=== PATIENT | male | born 1930 | race Hispanic/Latino ===

== ENCOUNTER 2018-03-03 09:24 | Inpatient (IN) | payer MEDICARE, OTHER ==
[2018-03-03] MEDS ORDERED: Iohexol 240 (50 ml) PO ONE (10:25)
[2018-03-03] MEDS ORDERED: Sodium Chloride 0.9% 1,000 ML IV STA (10:26)
--- NOTE | 2018-03-03 10:31 | ED PDOC ---
HPI: General Adult Time Seen by Provider: 03/03/18 09:56 Chief Complaint (Nursing): Weakness/Neurological Deficit Chief Complaint (Provider): Weakness/Decreased Appetite History Per: Patient, Other (Neighbor ) Onset/Duration Of Symptoms: Days Current Symptoms Are (Timing): Still Present Additional Complaint(s): 87 year old male with a past medical history of hypertension and hyperlipidemia who was brought to the ED by neighbor for evaluation as patient hasnt been eating or drinking in the past 2 weeks. Neighbor states that patient has had weakness and lethargy as well as more medical problems that he cant remember. Patient states that he has left sided abdominal pain and increased urination. He also adds that he used to drink and smoke daily but over the past 2 weeks has not been. Patient denies fevers, vomiting, or diarrhea. [facility] Past Medical History Reviewed: Historical Data, Nursing Documentation, Vital Signs Vital Signs: Last Vital Signs Temp 97.4 F L 03/03/18 09:37 Pulse 70 03/03/18 09:37 Resp 18 03/03/18 09:37 BP 111/70 03/03/18 09:37 Pulse Ox 100 03/03/18 09:37 - Medical History PMH: HTN, Hyperlipidemia - Surgical History Surgical History: Appendectomy - Family History Family History: States: Unknown Family Hx - Social History Current smoker - smoking cessation education provided: Yes (not in the last 2 weeks or so) Alcohol: > 2 Drinks/Day (not in the last 2 weeks or so) Drugs: Denies - Home Medications Home Medications: Ambulatory Orders Medication Instructions Recorded Cholecalciferol (Vitamin D3) 2,000 unit PO DAILY 03/03/18 [Vitamin D3] Folic Acid 1 mg PO DAILY 03/03/18 Simvastatin [Zocor] 40 mg PO HS 03/03/18 - Allergies Allergies/Adverse Reactions: Allergies Allergy/AdvReac Type Severity Reaction Status Date / Time No Known Allergies Allergy Verified 03/03/18 10:00 Review of Systems ROS Statement: Except As Marked, All Systems Reviewed And Found Negative Constitutional: Positive for: Weakness, Other (lethargic, decreased appetite ) Gastrointestinal: Positive for: Abdominal Pain Genitourinary Male: Positive for: Frequency (increased urination ) Physical Exam - Reviewed Nursing Documentation Reviewed: Yes Vital Signs Reviewed: Yes - Physical Exam Appears: Positive for: Non-toxic, No Acute Distress (thin appearing ) Head Exam: Positive for: ATRAUMATIC, NORMAL INSPECTION, NORMOCEPHALIC Skin: Positive for: Warm, Pallor Eye Exam: Positive for: Normal appearance ENT: Positive for: Other (poor dental hygiene ) Cardiovascular/Chest: Positive for: Regular Rate, Rhythm. Negative for: Murmur Respiratory: Positive for: Normal Breath Sounds. Negative for: Respiratory Distress Gastrointestinal/Abdominal: Positive for: Soft, Tenderness (mild left sided tenderness) Extremity: Positive for: Normal ROM. Negative for: Deformity, Swelling Neurologic/Psych: Positive for: Alert, Oriented. Negative for: Motor/Sensory Deficits - Laboratory Results Result Diagrams: 03/03/18 10:43 03/03/18 10:43 - ECG O2 Sat by Pulse Oximetry: 100 (RA) Pulse Ox Interpretation: Normal Medical Decision Making Medical Decision Making: Time: 10:33 Impression: Rule out dehydration, electrolyte abnormality, infection, or intra- abdominal process Plan: --CT Abd/Pelvis --CMP --Lipase --CBC --IV Fluids --Omnipaque 50 ml PO --Urine Culture --Urinalysis Time: 1332 Chest X-Ray: FINDINGS: LUNGS: No active pulmonary disease. PLEURA: No significant pleural effusion identified. No pneumothorax apparent. CARDIOVASCULAR: There is presence of aortic atherosclerotic calcification on x-ray. Normal cardiac size. No significant or acute findings to account for/ related to the clinical presentation. OSSEOUS STRUCTURES: Thoracic spondylosis. Bilateral shoulder arthrosis. VISUALIZED UPPER ABDOMEN: Normal. OTHER FINDINGS: None. IMPRESSION: No active disease. Other findings as above. Spoke to Dr. Joseph regarding patient who will be admitted. Patient' labs are all cytopenic. Spoke to Dr. Bang, compensation administrator. Patient will be admitted to hematology, urology, or GI. CT Abd/Pelvis: FINDINGS: LOWER THORAX: Unremarkable. LIVER: Unremarkable. No gross lesion or ductal dilatation.. Massive dilatation of the portal veins including main and splenic vein. GALLBLADDER AND BILE DUCTS: Unremarkable. PANCREAS: Unremarkable. No gross lesion or ductal dilatation. SPLEEN: Massive splenomegaly. Orthogonal measurements 11.6 x 21.6 x 25.8 cm. Peripheral area of diminished attenuation which appears represent a subcapsular collection with mean Hounsfield unit values 36.5. There is no history of recent trauma. Alternatively and in particular on the sagittal views these could represent peripheral areas of splenic infarction. ADRENALS: Unremarkable. No mass. KIDNEYS AND URETERS: Unremarkable. No hydronephrosis. No solid mass. VASCULATURE: Atherosclerotic calcification and mural plaque present. Findings are seen throughout the aorta BOWEL: Unremarkable. No obstruction. No gross mural thickening. APPENDIX: Normal appendix. PERITONEUM: Unremarkable. No free fluid. No free air. LYMPH NODES: Unremarkable. No enlarged lymph nodes. BLADDER: Unremarkable. REPRODUCTIVE: Unremarkable. BONES: No acute fracture. OTHER FINDINGS: None. IMPRESSION: Massive splenomegaly. Massive dilatation of the portal veins. Subcapsular areas of diminished attenuation perhaps splenic infarction. Old subcapsular hemorrhagic process less likely (there is no layering of blood pool products) Communication of results: I discussed these findings directly with the attending physician in the emergency department at 14:14. Time: 1540 US Abdomen: FINDINGS: LIVER: Measures 19.0 cm in length. Patent portal vein. Portal venous flow: Hepatopetal. Unremarkable echogenicity of the liver parenchyma. No mass. No intrahepatic bile duct dilatation. GALLBLADDER: Unremarkable. No gallstones. COMMON BILE DUCT: Measures 3.9 mm. No stones. No dilatation. PANCREAS: Unremarkable as visualized. No mass. No ductal dilatation. RIGHT KIDNEY: Measures 4.5 x 10.1 cm in length. Normal echogenicity. No calculus, mass, or hydronephrosis. AORTA: No aneurysmal dilatation. IVC: Unremarkable. OTHER FINDINGS: Massive splenomegaly. Findings confirmed on concurrent CT scan of the abdomen and pelvis. Splenic length 23.7 cm. Orthogonal measurements 15.2 cm. Heterogeneous expects of the spleen identified on CT are only visible to limited fashion on sagittal images. This appears to be a peripheral area of low attenuation 10 cm in length. Benign calcifications noted, punctate type in the spleen IMPRESSION: Massive splenomegaly. Patent portal venous system. Pt will be admitted to the hospital. Scribe Attestation: Documented by Clair Duarte, acting as a scribe for Joao Feliciano MD. Provider Scribe Attestation: All medical record entries made by the Scribe were at my direction and personally dictated by me. I have reviewed the chart and agree that the record accurately reflects my personal performance of the history, physical exam, medical decision making, and the department course for this patient. I have also personally directed, reviewed, and agree with the discharge instructions and disposition. Disposition - Clinical Impression Clinical Impression: Generalized muscle weakness - Patient ED Disposition Is Patient to be Admitted: Yes Counseled Patient/Family Regarding: Studies Performed, Diagnosis - Disposition Disposition Time: 15:00 Condition: GUARDED
[2018-03-03] MEDS ORDERED: Iohexol 240 (50 ml) ONE (10:43)
[2018-03-03 10:55] LABS: BASO % 1.6 % (0.0-2.0); EOS % 0.1 % (0.0-4.0); HEMOGLOBIN 9.6 g/dL (12.0-18.0); LYMPH # 1.6 K/uL (1.0-4.3); LYMPH % 64.4 % (20.0-40.0); MEAN CELL VOLUME 87.3 fl (80.0-94.0); MEAN CORPUSCULAR HEMOGLOBIN 28.2 pg (27.0-31.0); MEAN CORPUSCULAR HGB CONC 32.3 g/dL (33.0-37.0); MEAN PLATELET VOLUME 10.3 fl (7.2-11.7); MONO # 0.3 K/uL (0.0-0.8); MONO % 11.4 % (0.0-10.0); NEUT # 0.6 K/uL (1.8-7.0); NEUT % 22.5 % (50.0-75.0); NRBC % 0.1 % (0.0-0.0); RBC 3.42 Mil/uL (4.40-5.90); RED CELL DISTRIBUTION WIDTH 15.1 % (11.5-14.5); WHITE BLOOD COUNT 2.5 K/uL (4.8-10.8)
[2018-03-03 10:57] LABS: ALB/GLOB RATIO 1.2 (1.0-2.1); ALBUMIN 3.2 g/dL (3.5-5.0); ALT/SGPT 19 U/L (21-72); AST/SGOT 32 U/L (17-59); BLOOD UREA NITROGEN 18 mg/dl (9-20); CALCIUM 8.5 mg/dL (8.4-10.2); GFR NON-AFRICAN AMERICAN > 60; LIPASE 65 U/L (23-300)
[2018-03-03 11:09] LABS: URINE AMORPHOUS SEDIMENT RARE /ul (<OCC); URINE BACTERIA RARE (<OCC); URINE BILIRUBIN NEGATIVE (NEGATIVE); URINE BLOOD NEGATIVE (NEGATIVE); URINE CLARITY CLOUDY (Clear); URINE COLOR AMBER (YELLOW); URINE GLUCOSE (UA) NEG (NEGATIVE); URINE HYALINE CAST 0-2 /hpf (0-2); URINE LEUKOCYTE ESTERASE NEG Leu/uL (Negative); URINE PROTEIN NEGATIVE (NEGATIVE)
[2018-03-03] MEDS ORDERED: Iohexol 300 100 ML IJ ONE (13:16)
[2018-03-03] MEDS ORDERED: Sodium Chloride 0.9% 50 ML IV ONE (13:16)
--- NOTE | 2018-03-03 13:35 | RAD ---
Date of service: 03/03/2018 HISTORY: weakness COMPARISON: No prior. TECHNIQUE: Chest PA and lateral FINDINGS: LUNGS: No active pulmonary disease. PLEURA: No significant pleural effusion identified. No pneumothorax apparent. CARDIOVASCULAR: There is presence of aortic atherosclerotic calcification on x-ray. Normal cardiac size. No significant or acute findings to account for/ related to the clinical presentation. OSSEOUS STRUCTURES: Thoracic spondylosis. Bilateral shoulder arthrosis. VISUALIZED UPPER ABDOMEN: Normal. OTHER FINDINGS: None. IMPRESSION: No active disease. Other findings as above.
--- NOTE | 2018-03-03 14:23 | CT ---
Date of service: 03/03/2018 PROCEDURE: CT Abdomen and Pelvis with contrast HISTORY: Abdominal pain and abnormal labs including thrombocytopenia and anemia. COMPARISON: None. TECHNIQUE: Intravenous contrast dose: 95 cc Omnipaque 300. Radiation dose: Total exam DLP = <inf_radiation_dlp> mGy-cm. This CT exam was performed using one or more of the following dose reduction techniques: Automated exposure control, adjustment of the mA and/or kV according to patient size, and/or use of iterative reconstruction technique. FINDINGS: LOWER THORAX: Unremarkable. LIVER: Unremarkable. No gross lesion or ductal dilatation.. Massive dilatation of the portal veins including main and splenic vein. GALLBLADDER AND BILE DUCTS: Unremarkable. PANCREAS: Unremarkable. No gross lesion or ductal dilatation. SPLEEN: Massive splenomegaly. Orthogonal measurements 11.6 x 21.6 x 25.8 cm. Peripheral area of diminished attenuation which appears represent a subcapsular collection with mean Hounsfield unit values 36.5. There is no history of recent trauma. Alternatively and in particular on the sagittal views these could represent peripheral areas of splenic infarction. ADRENALS: Unremarkable. No mass. KIDNEYS AND URETERS: Unremarkable. No hydronephrosis. No solid mass. VASCULATURE: Atherosclerotic calcification and mural plaque present. Findings are seen throughout the aorta BOWEL: Unremarkable. No obstruction. No gross mural thickening. APPENDIX: Normal appendix. PERITONEUM: Unremarkable. No free fluid. No free air. LYMPH NODES: Unremarkable. No enlarged lymph nodes. BLADDER: Unremarkable. REPRODUCTIVE: Unremarkable. BONES: No acute fracture. OTHER FINDINGS: None. IMPRESSION: Massive splenomegaly. Massive dilatation of the portal veins. Subcapsular areas of diminished attenuation perhaps splenic infarction. Old subcapsular hemorrhagic process less likely (there is no layering of blood pool products) Communication of results: I discussed these findings directly with the attending physician in the emergency department at 14:14.
--- NOTE | 2018-03-03 15:44 | US ---
Date of service: 03/03/2018 HISTORY: splenomegaly COMPARISON: March 03, 2018 CT abdomen and pelvis TECHNIQUE: Sonographic evaluation of the right upper quadrant of the abdomen. FINDINGS: LIVER: Measures 19.0 cm in length. Patent portal vein. Portal venous flow: Hepatopetal. Unremarkable echogenicity of the liver parenchyma. No mass. No intrahepatic bile duct dilatation. GALLBLADDER: Unremarkable. No gallstones. COMMON BILE DUCT: Measures 3.9 mm. No stones. No dilatation. PANCREAS: Unremarkable as visualized. No mass. No ductal dilatation. RIGHT KIDNEY: Measures 4.5 x 10.1 cm in length. Normal echogenicity. No calculus, mass, or hydronephrosis. AORTA: No aneurysmal dilatation. IVC: Unremarkable. OTHER FINDINGS: Massive splenomegaly. Findings confirmed on concurrent CT scan of the abdomen and pelvis. Splenic length 23.7 cm. Orthogonal measurements 15.2 cm. Heterogeneous expects of the spleen identified on CT are only visible to limited fashion on sagittal images. This appears to be a peripheral area of low attenuation 10 cm in length. Benign calcifications noted, punctate type in the spleen IMPRESSION: Massive splenomegaly. Patent portal venous system.
--- NOTE | 2018-03-03 20:39 | CARD ---
APPROVED REPORT Date of service: 03/03/2018 EKG Measurement Heart [id number] <Conclusion> Normal sinus rhythm Normal ECG
--- NOTE | 2018-03-03 22:31 | CP.PCM.CON ---
History of Present Illness - History of Present Illness History of Present Illness: 87 year old male with a history of HTN, HL, brought in for weakness and poor po intake, found to have splenomegaly and pancytopenia. The patient does admit to left sided abdominal pain and fatigue. He notes to diminished appetite. He denies fevers and chills. He has no abnormal bleeding and bruising. Past medical history: HTN, HL Past surgical history: Appendectomy Family history: Denies hematologic and oncologic problems Social history: +tobacco, + alcohol Allergies: NKA Review of systems: All remaining review of systems including HEENT, cardiovascular, respiratory, gastrointestinal, genitourinary, musculoskeletal, dermatologic, neurologic, and psychiatric are negative unless mentioned in the HPI. Past Patient History - Past Social History Alcohol: > 2 Drinks/Day (not in the last 2 weeks or so) Drugs: Denies - CARDIAC Hx Cardiac Disorders: Yes - PSYCHIATRIC Hx Substance Use: No - SURGICAL HISTORY Hx Appendectomy: Yes Meds Allergies/Adverse Reactions: Allergies Allergy/AdvReac Type Severity Reaction Status Date / Time No Known Allergies Allergy Verified 03/03/18 10:00 - Medications Medications: Current Medications Cholecalciferol (Vitamin D) 2,000 intlu PO DAILY BETSY Folic Acid (Folic Acid) 1 mg PO DAILY BETSY Physical Exam - Head Exam Head Exam: ATRAUMATIC - Eye Exam Eye Exam: Normal appearance - ENT Exam ENT Exam: Mucous Membranes Dry - Respiratory Exam Respiratory Exam: NORMAL BREATHING PATTERN - Cardiovascular Exam Cardiovascular Exam: +S1, +S2 - GI/Abdominal Exam GI & Abdominal Exam: Normal Bowel Sounds - Neurological Exam Neurological exam: Oriented x3 - Psychiatric Exam Psychiatric exam: Normal Affect, Normal Mood - Skin Skin Exam: Warm Results - Vital Signs Recent Vital Signs: Last Vital Signs Temp 97.6 F 03/03/18 20:54 Pulse 71 03/03/18 20:54 Resp 18 03/03/18 20:54 BP 106/63 03/03/18 20:54 Pulse Ox 99 03/03/18 20:54 - Labs Result Diagrams: 03/03/18 10:43 03/03/18 10:43 Labs: Laboratory Results - last 24 hr 03/03/18 03/03/18 03/03/18 10:43 10:43 10:43 WBC 2.5 L RBC 3.42 L Hgb 9.6 L Hct 29.9 L MCV 87.3 MCH 28.2 MCHC 32.3 L RDW 15.1 H Plt Count 34 L MPV 10.3 Neut % (Auto) 22.5 L Lymph % (Auto) 64.4 H Darke % (Auto) 11.4 H Eos % (Auto) 0.1 Baso % (Auto) 1.6 Neut # (Auto) 0.6 L Lymph # (Auto) 1.6 Darke # (Auto) 0.3 Eos # (Auto) 0.0 Baso # (Auto) 0.0 Sodium 131 L Potassium 4.4 Chloride 98 Carbon Dioxide 30 Anion Gap 7 L BUN 18 Creatinine 0.9 Est GFR ( Amer) > 60 Est GFR (Non-Af Amer) > 60 Random Glucose 90 Calcium 8.5 Total Bilirubin 0.9 AST 32 ALT 19 L Alkaline Phosphatase 79 Total Protein 5.9 L Albumin 3.2 L Globulin 2.7 Albumin/Globulin Ratio 1.2 Lipase 65 Urine Color Darby Urine Clarity Cloudy Urine pH 5.0 Ur Specific [place] 1.023 Urine Protein Negative Urine Glucose (UA) Neg Urine Ketones Negative Urine Blood Negative Urine Nitrate Negative Urine Bilirubin Negative Urine Urobilinogen 4.0 Ur Leukocyte Esterase Neg Urine RBC (Auto) 2 Urine Microscopic WBC 3 Amorphous Sediment Rare H Urine Bacteria Rare Hyaline Casts 0-2 Assessment & Plan (1) Pancytopenia Assessment and Plan: with splenomegaly ? myeloproliferative disorder ? lymphoma patient agreeable to bone marow biopsy - will plan to do in AM HIV and hepatitis panel Status: Acute (2) Splenomegaly Assessment and Plan: rule out lymphoma, rule out myeloproliferative disorder Thank you for this interesting consult. Status: Acute
--- NOTE | 2018-03-04 04:03 | CON ---
DATE: 03/03/2018 REFERRING DOCTOR: Dr. Bang. REASON FOR CONSULTATION: Splenomegaly. HISTORY OF PRESENT ILLNESS: This is a very pleasant 87-year-old male with history of hyperlipidemia and hypertension who is brought in because the patient has been not on p.o. intake over the past couple of weeks. While patient and pain. The patient is seen lying in bed, comfortable, in no apparent distress. PAST MEDICAL HISTORY: As above. PAST SURGICAL HISTORY: As above. MEDICATIONS: Reviewed. REVIEW OF SYSTEMS: All other systems have been reviewed and negative apart from the HPI. PHYSICAL EXAMINATION: VITAL SIGNS: Here in the hospital grossly unremarkable. GENERAL: A pleasant, elderly-appearing male, lying in bed comfortable. HEENT: Head is normocephalic and atraumatic. Eyes, pupils are equally reactive to light bilaterally. No conjunctival pallor or icterus. NECK: Supple. Normal range of motion noted. No lymphadenopathy appreciated. LUNGS: Coarse breath sounds bilaterally. HEART: S1, S2. Regular rate and rhythm. ABDOMEN: Soft. Tender in the left quadrant. No rebound. No guarding. EXTREMITIES: Pulses present bilaterally. SKIN: Warm, dry, and intact. NEUROLOGY: A and O x3. LABORATORY DATA: Labs and radiology have been reviewed. WBC is 2.5, hemoglobin is 9.6, platelet count is 34. Imaging shows an abdominal CT that was performed with p.o. and IV contrast which shows a massive splenomegaly. Possible splenic infarct ultrasound confirms the CAT scan findings of a very large spleen. ASSESSMENT AND PLAN: This is an 87-year-old man with splenomegaly. Differential included but not limited to, given his pancytopenia, recommend Hematology involvement, possibly from leukemia. From gastrointestinal standpoint, advance diet as tolerated, and we will follow the patient with you. Thank you for the consult. Asaf Arnold MD/ PhD cc: Dr. Bang.
[2018-03-04] MEDS ORDERED: Lidocaine 2% Inj (20ml) ONE (08:53)
[2018-03-04] MEDS ORDERED: Povidone Iodine Topical 10% Sol ONE (08:56)
[2018-03-04] MEDS ORDERED: Cholecalciferol 1,000 INTLU TAB PO SCH (09:00)
--- NOTE | 2018-03-04 09:53 | CP.PCM.PN ---
Subjective - Date & Time of Evaluation Date of Evaluation: 03/04/18 Time of Evaluation: 09:00 - Subjective Subjective: Bone marrow aspiration and biopsy procedure Indication: Pancytopenia and splenomegaly - Time-out was called to confirm: patients name and date of , procedure, side and site of biopsy, safety procedures followed. - Performed by: self. - Informed consent: signed by patient. - Aspiration and biopsy site: [LEFT] superior posterior iliac crest. - Patient position: [right lateral decubitus] - Preparation and technique: sterile preparation of site with [place], Chloraprep, draped to expose aspirate/biopsy area, local anesthesia with 2% lidocaine (approximately 10ml), frequent pressure application on incision to maintain hemostasis. - Tissue obtained: bone marrow aspirate and biopsy were successfully obtained in sterile manner. - Toleration of procedure and any complications: slight localized bleeding (<1ml). Patient tolerated procedure well with minimal pain. Objective - Vital Signs/Intake and Output Vital Signs (last 24 hours): Temp Pulse Resp BP Pulse Ox 97.3 F L 62 20 105/56 L 100 03/04/18 07:48 03/04/18 07:48 03/04/18 07:48 03/04/18 07:48 03/04/18 07:48 - Medications Medications: Current Medications Cholecalciferol (Vitamin D) 2,000 intlu PO DAILY [facility] Folic Acid (Folic Acid) 1 mg PO DAILY [facility] - Labs Labs: 03/03/18 10:43 03/03/18 10:43 - Head Exam Head Exam: ATRAUMATIC - Eye Exam Eye Exam: Normal appearance - ENT Exam ENT Exam: Mucous Membranes Dry - Respiratory Exam Respiratory Exam: NORMAL BREATHING PATTERN - Cardiovascular Exam Cardiovascular Exam: +S1, +S2 - GI/Abdominal Exam GI & Abdominal Exam: Normal Bowel Sounds Assessment and Plan (1) Pancytopenia Assessment & Plan: s/p bone marrow biopsy f/u 2 weeks in the office Status: Acute (2) Splenomegaly Status: Acute
--- NOTE | 2018-03-04 12:05 | CP.PCM.PCO ---
Assessment/Plan - Assessment and Plan (Free Text) Assessment: Patient seen and examined Doing well, had bone marrow this morning with Dr Davis Cleared from Hematology for discharge with follow up in 2 weeks for bone marrow results. Cleared by GI Dr Arnold for dc Pt eval pending Discussed with Dr South who agrees.
[2018-03-04 12:27] LABS: HEPATITIS B SURFACE AG Negative (NEGATIVE)
[2018-03-04 12:33] LABS: HEPATITIS A IGM NEGATIVE (NEGATIVE); HEPATITIS B CORE AB NEGATIVE (NEGATIVE)
[2018-03-04 12:44] LABS: HEPATITIS C ANTIBODY NEGATIVE (NEGATIVE)
[2018-03-04 12:58] LABS: FOLATE > 20.0 ng/mL
[2018-03-04 15:49] VITALS: BP 113/71; PULSE 70; RESP 17; TEMP 97.7
--- NOTE | 2018-03-04 23:46 | CP.PCM.DIS ---
Provider - Provider Date of Admission: 03/03/18 14:28 Attending physician: Maninder Bang MD Consults: 03/03/18 14:26 Hematology Oncology Consult Stat Comment: Consulting Provider: Jarad Davis Consulting Physician: Jarad Davis Reason for Consult: splenomegaly, pancytopenia 03/03/18 14:27 Gastroenterology Consult Stat Comment: Consulting Provider: Asaf Arnold Consulting Physician: Asaf Arnold Reason for Consult: splenomegaly possible infarction Time Spent in preparation of Discharge (in minutes): 30 Hospital Course - Lab Results Lab Results: Micro Results 03/03/18 10:43 Urine,Clean Catch Urine Culture - Final No Growth (<1,000 CFU/ML) Most Recent Lab Values WBC 2.5 K/uL (4.8-10.8) L 03/03/18 10:43 RBC 3.42 Mil/uL (4.40-5.90) L 03/03/18 10:43 Hgb 9.6 g/dL (12.0-18.0) L 03/03/18 10:43 Hct 29.9 % (35.0-51.0) L 03/03/18 10:43 MCV 87.3 fl (80.0-94.0) 03/03/18 10:43 MCH 28.2 pg (27.0-31.0) 03/03/18 10:43 MCHC 32.3 g/dL (33.0-37.0) L 03/03/18 10:43 RDW 15.1 % (11.5-14.5) H 03/03/18 10:43 Plt Count 34 K/uL (130-400) L 03/03/18 10:43 MPV 10.3 fl (7.2-11.7) 03/03/18 10:43 Neut % (Auto) 22.5 % (50.0-75.0) L 03/03/18 10:43 Lymph % (Auto) 64.4 % (20.0-40.0) H 03/03/18 10:43 Graham % (Auto) 11.4 % (0.0-10.0) H 03/03/18 10:43 Eos % (Auto) 0.1 % (0.0-4.0) 03/03/18 10:43 Baso % (Auto) 1.6 % (0.0-2.0) 03/03/18 10:43 Neut # (Auto) 0.6 K/uL (1.8-7.0) L 03/03/18 10:43 Lymph # (Auto) 1.6 K/uL (1.0-4.3) 03/03/18 10:43 Graham # (Auto) 0.3 K/uL (0.0-0.8) 03/03/18 10:43 Eos # (Auto) 0.0 K/uL (0.0-0.7) 03/03/18 10:43 Baso # (Auto) 0.0 K/uL (0.0-0.2) 03/03/18 10:43 Retic Count 4.2 % (0.5-1.5) H 03/04/18 05:10 Sodium 131 mmol/l (132-148) L 03/03/18 10:43 Potassium 4.4 MMOL/L (3.6-5.0) 03/03/18 10:43 Chloride 98 mmol/L (98-107) 03/03/18 10:43 Carbon Dioxide 30 mmol/L (22-30) 03/03/18 10:43 Anion Gap 7 (10-20) L 03/03/18 10:43 BUN 18 mg/dl (9-20) 03/03/18 10:43 Creatinine 0.9 mg/dl (0.8-1.5) 03/03/18 10:43 Est GFR ( Amer) > 60 03/03/18 10:43 Est GFR (Non-Af Amer) > 60 03/03/18 10:43 Random Glucose 90 mg/dL (75-110) 03/03/18 10:43 Calcium 8.5 mg/dL (8.4-10.2) 03/03/18 10:43 Ferritin 138.0 ng/Ml (17.9-464) 03/04/18 05:10 Total Bilirubin 0.9 mg/dl (0.2-1.3) 03/03/18 10:43 AST 32 U/L (17-59) 03/03/18 10:43 ALT 19 U/L (21-72) L 03/03/18 10:43 Alkaline Phosphatase 79 U/L (38-126) 03/03/18 10:43 Lactate Dehydrogenase 790 U/L (313-618) H 03/04/18 05:10 Total Protein 5.9 G/DL (6.3-8.2) L 03/03/18 10:43 Albumin 3.2 g/dL (3.5-5.0) L 03/03/18 10:43 Globulin 2.7 gm/dL (2.2-3.9) 03/03/18 10:43 Albumin/Globulin Ratio 1.2 (1.0-2.1) 03/03/18 10:43 Lipase 65 U/L (23-300) 03/03/18 10:43 Vitamin B12 534 pg/mL (239-931) 03/04/18 05:10 Folate > 20.0 ng/mL 03/04/18 05:10 Urine Color [place] (YELLOW) 03/03/18 10:43 Urine Clarity Cloudy (Clear) 03/03/18 10:43 Urine pH 5.0 (5.0-8.0) 03/03/18 10:43 Ur Specific [place] 1.023 (1.003-1.030) 03/03/18 10:43 Urine Protein Negative mg/dL (NEGATIVE) 03/03/18 10:43 Urine Glucose (UA) Neg mg/dL (NEGATIVE) 03/03/18 10:43 Urine Ketones Negative mg/dL (NEGATIVE) 03/03/18 10:43 Urine Blood Negative (NEGATIVE) 03/03/18 10:43 Urine Nitrate Negative (NEGATIVE) 03/03/18 10:43 Urine Bilirubin Negative (NEGATIVE) 03/03/18 10:43 Urine Urobilinogen 4.0 mg/dL (0.2-1.0) 03/03/18 10:43 Ur Leukocyte Esterase Neg [place]/uL (Negative) 03/03/18 10:43 Urine RBC (Auto) 2 /hpf (0-3) 03/03/18 10:43 Urine Microscopic WBC 3 /hpf (0-5) 03/03/18 10:43 Amorphous Sediment Rare /ul (<OCC) H 03/03/18 10:43 Urine Bacteria Rare (<OCC) 03/03/18 10:43 Hyaline Casts 0-2 /hpf (0-2) 03/03/18 10:43 Hepatitis A IgM Ab Negative (NEGATIVE) 03/04/18 05:10 Hep Bs Antigen Negative (NEGATIVE) 03/04/18 05:10 Hep B Core IgM Ab Negative (NEGATIVE) 03/04/18 05:10 Hepatitis C Antibody Negative (NEGATIVE) 03/04/18 05:10 HIV 1&2 Antibody Screen Negative (NEGATIVE) 03/04/18 05:10 Discharge Exam - Head Exam Head Exam: ATRAUMATIC - Eye Exam Eye Exam: Normal appearance - ENT Exam ENT Exam: Mucous Membranes Moist - Neck Exam Neck exam: Full Rom - Respiratory Exam Respiratory Exam: Clear to PA & Lateral, NORMAL BREATHING PATTERN - Cardiovascular Exam Cardiovascular Exam: REGULAR RHYTHM, +S1, +S2 - GI/Abdominal Exam GI & Abdominal Exam: Normal Bowel Sounds, Tenderness - Extremities Exam Extremities exam: normal capillary refill - Neurological Exam Neurological exam: Alert, Oriented x3 - Psychiatric Exam Psychiatric exam: Normal Affect, Normal Mood - Skin Skin Exam: Dry Discharge Plan - Follow Up Plan Condition: STABLE Disposition: HOME/ ROUTINE Instructions: Bone Marrow Aspiration or Biopsy, Fatigue (DC), Acute Abdomen (Belly Pain), Adult (DC), Bone Marrow Failure in Children (DC), Bone Marrow Failure in Children (GEN) Additional Instructions: Pancytopenia/Splenomegaly -Pt is cleared for discharge, will follow up outpatient with Dr. Davis in 2 weeks. Referrals: Jarad Davis MD [Staff Provider] -
[2018-03-09 02:19] VITALS: O2SAT 100
== END 2018-03-04 16:10 | disposition home or self-care (01) | DRG 810 ==
LOC: H.ER 09:24 → H.ERHOLD 14:28 → H.TEL 20:14
PROVIDERS: ADMIT Family Medicine; ATTEND Family Medicine
PROC: 07DR3ZX Extraction of Iliac Bone Marrow, Percutaneous Approach, Diagnostic (ICD-10-PCS; principal; 2018-03-04)
DX: D61.818 Other pancytopenia (principal); R16.1 Splenomegaly, not elsewhere classified; I10 Essential (primary) hypertension; E78.5 Hyperlipidemia, unspecified; F17.200 Nicotine dependence, unspecified, uncomplicated

== ENCOUNTER 2018-07-14 12:24 | Emergency (ER) | payer MEDICARE, OTHER ==
[2018-07-14 12:37] VITALS: BP 116/70; PULSE 78; RESP 18; TEMP 97.8; O2SAT 99
--- NOTE | 2018-07-14 13:24 | ED PDOC ---
Lower Extremity Pain/Injury Time Seen by Provider: 07/14/18 12:42 Chief Complaint (Nursing): Lower Extremity Problem/Injury History Per: Patient History/Exam Limitations: no limitations Onset/Duration Of Symptoms: Days Current Symptoms Are (Timing): Still Present Additional Complaint(s): 88 yo M with h/o HTN and hyperlipidemia presents to ER for evaluation of left lower leg redness, swelling and pain. Pt notes it has all stayed the same, he has not noticed anything getting better or worse. He reports some pain at times when walking. Pt reports it has been going on for 2 weeks. He saw his PMD, Dr. Seymour, who prescribed him Augmentin, Lasix and Mupirocin ointment, which pt has been taking for 1 week without improvement. Pt saw his PMD again today and was sent to ER for further evaluation. Pt reports having this 2 years ago to both legs, got 2 penicillin shots and resolved. Pt denies fever, chill, chest pain, SOB, injury or trauma, prolonged immobilization, recent travel, h/o of blood clots. PMD: Dr. Marty Seymour Past Medical History Reviewed: Historical Data, Nursing Documentation, Vital Signs Vital Signs: Last Vital Signs Temp 97.8 F 07/14/18 12:34 Pulse 78 07/14/18 12:34 Resp 18 07/14/18 12:34 BP 116/70 07/14/18 12:34 Pulse Ox 99 07/14/18 12:34 Primary Care Provider: Tan Haque - Medical History PMH: HTN, Hypercholesterolemia, Hyperlipidemia Denies: Diabetes, HIV, Chronic Kidney Disease - Surgical History Surgical History: Appendectomy - Family History Family History: States: Unknown Family Hx - Home Medications Home Medications: Ambulatory Orders Medication Instructions Recorded Folic Acid 1 mg PO DAILY 03/03/18 Simvastatin [Zocor] 40 mg PO HS 03/03/18 Amoxicillin/Clavulanate [Augmentin 1 tab PO Q12 07/14/18 875 MG-125 MG Tab] Clindamycin [Cleocin] 450 mg PO TID 7 Days cap 07/14/18 Furosemide [Lasix] 40 mg PO DAILY 07/14/18 Mupirocin 2% Ointment [Bactroban 1 appl PO TID 07/14/18 Ointment] - Allergies Allergies/Adverse Reactions: Allergies Allergy/AdvReac Type Severity Reaction Status Date / Time No Known Allergies Allergy Verified 03/03/18 10:00 Review of Systems Constitutional: Negative for: Fever, Chills Cardiovascular: Negative for: Chest Pain, Orthopnea Respiratory: Negative for: Cough, Shortness of Breath, Hemoptysis Musculoskeletal: Positive for: Leg Pain (swelling and redness) Physical Exam - Reviewed Nursing Documentation Reviewed: Yes Vital Signs Reviewed: Yes - Physical Exam Comments: GENERALIZED APPEARANCE:Patient is awake, alert, oriented x3 in no acute distress. SKIN: Warm, dry; (-) cyanosis. EYES: (-) conjunctival pallor. ENMT: Mucous membranes moist. NECK: (-) tenderness, (-) stiffness, (-) lymphadenopathy, (-) JVD. CHEST AND RESPIRATORY: (-) rash, (-) chest wall tenderness. Lungs: (-) rales, (-) rhonchi, (-) wheezes, (-) rub; breath sounds equal bilaterally. HEART AND CARDIOVASCULAR: (-) irregularity; (-) murmur, (-) gallop, (-) rub. ABDOMEN AND GI: Soft; (-) distention, (-) tenderness, (-) palpable pulsatile mass. EXTREMITIES: pulses + 2, capillary refill <2sec LLE: (+)diffuse erythema from below knee to above ankle, circumfrential, warm to touch, swelling, (-)abrasions (-)lacerations (-)tenderness (-) deformity (-) calf tenderness, NVI NEURO AND PSYCH: Mental status as above. Cranial nerves grossly intact; strength symmetric. ambulating with steady gait - Laboratory Results Result Diagrams: 07/14/18 13:15 07/14/18 13:15 - ECG O2 Sat by Pulse Oximetry: 99 Medical Decision Making Medical Decision Makin:42 initial eval -- lower leg redness and swelling, likely cellulitis -- labs -- lactate -- blood culture -- Xray -- UA -- re eval Discussed with Dr. Da Silva, will also get duplex and start on Clindamycin IV 14:00 Date of service: 07/14/2018 PROCEDURE: Radiographs of the left tibia and fibula. HISTORY: infection COMPARISON: None available. TECHNIQUE: Frontal and lateral views obtained. 2 views obtained. FINDINGS: BONES: No fracture or destructive lesion. JOINT SPACES: Unremarkable. OTHER FINDINGS: None. IMPRESSION: Unremarkable radiographs of the left tibia and fibula. pt's WBC 2.6, compared to previous usually runs low pending Duplex results 15:35 pt got back from US, still waiting for results, pt recieved one dose of IV clindamycin, reports pain is improved and that he wants to go home Discussed with pt that he needs to stay for IV antibiotics as he failed outpt PO antibiotics and we do not have US results back, pt states he cannot stay in the hospital tonight but can come back tomorrow Patient refuses further care, evaluation or treatment in the ER. Patient informed of the reasons for the following and planned treatment, which patient understands, however still refuses. Patient informed of the risk and benefits of treatment. Informed that the risk could include worsening of current conditions, undiagnosed conditions, disability or even . Patient understands the following risk and the benefits of treatment. Patient has the capacity to make decisions and still refuses treatment by RN, PA and ER MD. Patient encouraged to return to the ER at any time and to follow up with pmd. Disposition - Clinical Impression Clinical Impression: Cellulitis of left lower leg - Patient ED Disposition Is Patient to be Admitted: No Counseled Patient/Family Regarding: Studies Performed, Diagnosis, Need For Followup, Rx Given - Disposition Referrals: Kaylin Seymour MD [Medical Doctor] - Disposition: Against Medical Advice Disposition Time: 15:45 Condition: FAIR Additional Instructions: The emergency medical care you received today was directed at your acute symptoms. If you were prescribed any medication, please fill it and take as directed. It may take several days for your symptoms to resolve. Return to the Emergency Department if your symptoms worsen, do not improve, or if you have any other problems. Please contact your doctor in 2 days for re-evaluation and follow up / or call one of the physicians/clinics you have been referred to that are listed on the Patient Visit Information form that is included in your discharge packet. Bring any paperwork you were given at discharge with you along with any medications you are taking to your follow up visit. Our treatment cannot replace ongoing medical care by a primary care provider (PCP) outside of the emergency department Prescriptions: Clindamycin [Cleocin] 450 mg PO TID 7 Days cap Instructions: Cellulitis and Erysipelas (Skin Infections), Cellulitis (Skin Infection), Adult (DC) Forms: [employer] (Malay) Print Language: PALESTINIAN - POA Present On Arrival: None
[2018-07-14 13:35] LABS: URINE BILIRUBIN NEGATIVE (NEGATIVE); URINE BLOOD NEGATIVE (NEGATIVE); URINE CLARITY SLIGHTY-CLOUDY (Clear); URINE COLOR YELLOW (YELLOW); URINE GLUCOSE (UA) NEG (NEGATIVE); URINE LEUKOCYTE ESTERASE NEG Leu/uL (Negative); URINE PROTEIN 30 mg/dL (NEGATIVE); URINE UROBILINOGEN 0.2-1.0 mg/dL (0.2-1.0)
[2018-07-14] MEDS ORDERED: Clindamycin 600mg/50ml D5W 600 MG/50 ML VIAL IVPB STA (13:37)
[2018-07-14 13:38] LABS: ALB/GLOB RATIO 1.5 (1.0-2.1); ALBUMIN 4.6 g/dL (3.5-5.0); BLOOD UREA NITROGEN 22 mg/dl (9-20); CALCIUM 8.8 mg/dL (8.4-10.2); GFR NON-AFRICAN AMERICAN > 60
[2018-07-14 13:40] LABS: ALT/SGPT 21 U/L (21-72); AST/SGOT 43 U/L (17-59)
--- NOTE | 2018-07-14 13:57 | RAD ---
Date of service: 07/14/2018 PROCEDURE: Radiographs of the left tibia and fibula. HISTORY: infection COMPARISON: None available. TECHNIQUE: Frontal and lateral views obtained. 2 views obtained. FINDINGS: BONES: No fracture or destructive lesion. JOINT SPACES: Unremarkable. OTHER FINDINGS: None. IMPRESSION: Unremarkable radiographs of the left tibia and fibula.
[2018-07-14 14:33] LABS: BASO % 0.9 % (0.0-2.0); EOS % 0.4 % (0.0-4.0); HEMOGLOBIN 10.6 g/dL (12.0-18.0); LYMPH # 0.8 K/uL (1.0-4.3); LYMPH % 31.5 % (20.0-40.0); MEAN CORPUSCULAR HEMOGLOBIN 30.9 pg (27.0-31.0); MEAN CORPUSCULAR HGB CONC 34.5 g/dL (33.0-37.0); MEAN PLATELET VOLUME 8.7 fl (7.2-11.7); MONO # 0.3 K/uL (0.0-0.8); MONO % 12.4 % (0.0-10.0); NEUT # 1.4 K/uL (1.8-7.0); NEUT % 54.8 % (50.0-75.0); NRBC % 0.3 % (0.0-0.0); RBC 3.43 Mil/uL (4.40-5.90); RED CELL DISTRIBUTION WIDTH 13.9 % (11.5-14.5); WHITE BLOOD COUNT 2.6 K/uL (4.8-10.8)
[2018-07-14 14:36] LABS: MEAN CELL VOLUME 89.6 fl (80.0-94.0)
--- NOTE | 2018-07-14 15:53 | US ---
Date of service: 07/14/2018 HISTORY: leg swelling. PRIORS: None. FINDINGS: 2-D, color and duplex Doppler analysis of the lower extremity venous circulation using routine protocol from the femoral veins through the popliteal veins. Venous compressibility: Normal. Flow and augmentation patterns: Normal. Visualized veins upper third of calf: Normal. [place] cyst: None. IMPRESSION: No sonographic or Doppler evidence for DVT in left lower extremity.
== END 2018-07-14 15:46 | disposition left against medical advice (07) ==
LOC: H.ER 12:24
DX: L03.116 Cellulitis of left lower limb (principal); I10 Essential (primary) hypertension; E78.00 Pure hypercholesterolemia, unspecified; Z79.899 Other long term (current) drug therapy